=== PATIENT | male | born 1990 | race Caucasian/White ===

== ENCOUNTER 2018-03-20 12:38 | Emergency (ER) | payer OTHER ==
[2018-03-20] MEDS: MORPHINE 10 MG/ML 1ML VIAL (J2270) IM (14:44)
== END 2018-03-20 15:13 | disposition home or self-care (01) ==
LOC: M ED 12:38
DX: M54.6 Pain in thoracic spine (principal); Z79.52 Long term (current) use of systemic steroids
CPT/HCPCS: J2270

== ENCOUNTER 2020-03-01 12:18 | Inpatient (IN) | payer BC, OTHER ==
[~2020-03-01] VITALS: Ht 180.3 cm; Wt 63.9 kg
[~2020-03-01 12:18] MED LIST: CYCL-707 PO; NAPR-855 PO; PERC5TAB12 PO; PRED10PA PO
[2020-03-01] MEDS ORDERED: tylenol 2 tabs (12:27)
[2020-03-01] MEDS ORDERED: NS 1,000 ML IV ONE (12:45)
--- NOTE | 2020-03-01 13:11 | REP ---
Head CT without contrast: History: Elevated sed rate. Severe headaches. Comparison study: No comparison study. CT findings: Bone window settings demonstrate an intact bony calvarium. There is no evidence of skull fracture or incidental bony calvarial lesion. The visualized paranasal sinuses appear clear. No intraorbital abnormality is seen. On soft tissue window setting images; the lateral, third, and fourth ventricles are normal in size and position. Chase-white differentiation pattern is normal above and below the tentorium. There are is no evidence of intracranial hemorrhage. No mass, edema, infarction, or midline shift is seen. No extra-axial fluid collection is appreciated. Impression: Negative noncontrast head CT. Electronically Signed by Valentin Srinivasan MD 03/01/2020 01:03 P
--- NOTE | 2020-03-01 13:13 | REP ---
CT study of the cervical spine without contrast: History: Severe headaches. Elevated sed rate. No comparison imaging. Technique: Helical scanning is acquired and overlapping 2 mm high resolution axial images were generated and reviewed at bone and soft tissue window settings. Coronal and sagittal multiplanar re-formations images are generated. CT findings: There is no evidence of cervical spine element fracture. No skull base fracture is seen. Cervical vertebral body heights are preserved. Alignment is normal. Facet joints are normally aligned bilaterally at each cervical level on multiplanar re-formations images. There is no evidence of intraspinal or paraspinal hematoma. No extra vertebral abnormality is seen. 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 This is a normal variant. 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 Otherwise negative CT study of the cervical spine without contrast. No fracture seen. Electronically Signed by Valentin Srinivasan MD 03/01/2020 01:06 P
[2020-03-01 13:24] LABS: BASO % 0.2 % (0.0-1.0); HEMATOCRIT 36.6 % (42.0-52.0); HEMOGLOBIN 12.4 g/dl (13.5-17.5); LYMPH # 0.8 10^3/uL (1.5-5.0); LYMPH % 6.4 % (24.0-44.0); MEAN CORPUSCULAR HGB CONC 33.9 g/dl (32.0-36.5); MEAN CORPUSCULAR VOLUME 85.5 fl (80.0-96.0); MONO # 0.4 10^3/uL (0.0-0.8); MONO % 3.1 % (0.0-5.0); NEUTROPHILS # 10.9 10^3/uL (1.5-8.5); NEUTROPHILS % 89.6 % (36.0-66.0); PLATELET COUNT, AUTOMATED 461 10^3/uL (150-450); RED BLOOD COUNT 4.28 10^6/uL (4.30-6.10); WHITE BLOOD COUNT 12.2 10^3/uL (4.0-10.0)
[2020-03-01 13:55] LABS: MONO REFLEX EBV COMP NEGATIVE (NEGATIVE)
[2020-03-01 13:57] LABS: ERYTHROCYTE SEDIMENTATION RATE 86 mm/hr (0-15)
[2020-03-01 14:26] LABS: ALBUMIN 3.3 GM/DL (3.2-5.2); ALT/SGPT 44 U/L (12-78); BILIRUBIN,TOTAL 0.3 MG/DL (0.2-1.0); BLOOD UREA NITROGEN 13 MG/DL (7-18); CALCIUM LEVEL 9.1 MG/DL (8.5-10.1); CARBON DIOXIDE LEVEL 31 MEQ/L (21-32); CHLORIDE LEVEL 101 MEQ/L (98-107); CREATININE FOR GFR 0.61 MG/DL (0.70-1.30); GLOMERULAR FILTRATION RATE > 60.0 (>60); GLUCOSE, FASTING 94 MG/DL (70-100); POTASSIUM SERUM 4.2 MEQ/L (3.5-5.1); RHEUMATOID FACTOR QUANT < 10.0 IU/ML (<15.0); SODIUM LEVEL 138 MEQ/L (136-145); TOTAL PROTEIN 7.2 GM/DL (6.4-8.2)
[2020-03-01] MEDS ORDERED: ACET-897 PO (14:32)
--- NOTE | 2020-03-01 15:25 | REP ---
REASON FOR EXAM: Fever and chills. PRIORS: None. The interstitial markings are increased throughout the lung hayes in somewhat of a patchy type but subtle distribution. No uriel lobar patchy opacity is present. There is a haziness throughout the pulmonary vascularity without pulmonary vascular redistribution. The heart is not enlarged and the pleural angles are sharp. The osseus structures are within normal limits. IMPRESSION: Evidence of interstitial edema possible from a viral pneumonitis, which needs to be correlated clinically with followup. Electronically Signed by Kendell Mera DO 03/01/2020 03:26 P
[2020-03-01 16:00] LABS: FREE T4 1.66 NG/DL (0.76-1.46); THYROID STIMULATING HORMONE 0.373 uIU/ML (0.358-3.740)
[2020-03-01] MEDS: LR 1,000 ML IV SCH (16:02)
--- NOTE | 2020-03-01 16:26 | REP ---
REASON FOR EXAM: Pneumonitis with cough and dyspnea. COMPARISON CT: None. The lack of intravenous contrast decreases the sensitivity of the exam. There is no evidence of gross mediastinal or hilar adenopathy. Borderline and mildly enlarged lymph nodes cannot be rule out since no intravenous contrast was administered. There are no pleural or pericardial effusions. The imaged upper abdomen is within normal limits. The imaged osseous structures are within normal limits. Evaluation of the lung hayes shows patchy scattered ground-glass opacities particularly in the periphery of the lower lung hayes and seen in conjunction with scattered reticulonodular densities. No focal or segmental lesion is identified. There is no significant nodule or mass. IMPRESSION: 1. Lung field findings as described above consistent with interstitial and possibly early diffuse airspace edema. The exact etiology is uncertain. This needs to be correlated clinically with appropriate followup. Certainly, infectious etiologies such as viral pneumonitis should be clinically evaluated for. 2. Exam limitations and other findings as described above. Electronically Signed by Kendell Mera DO 03/01/2020 04:41 P
[2020-03-01] MEDS ORDERED: PROHANCE 279.3MG/ML 15ML VIAL As Ordered ONE (17:09)
--- NOTE | 2020-03-01 18:03 | REPVR ---
PROCEDURE INFORMATION: Exam: MR Cervical Spine Without and With Contrast Exam date and time: 03/01/2020 5:19 PM Age: 29 years old Clinical indication: Other: Fever; Additional info: Headache, fever unkn origon esr/crp elev, RO abscess TECHNIQUE: Imaging protocol: Multiplanar magnetic resonance images of the cervical spine without and with intravenous contrast. Contrast material: PROHANCE; Contrast volume: 12 ml; Contrast route: IV; COMPARISON: CT Spine,cervical w/o contrast 03/01/2020 12:46 PM FINDINGS: Vertebrae: Mild lower cervical levoconvex scoliosis. No acute fracture seen. Spinal cord: Normal signal. No cord compression. The intervertebral discs are preserved in height and signal intensity. No evidence of discitis osteomyelitis. C2-C3: No significant disc disease. No significant spinal stenosis. C3-C4: No significant disc disease. No significant spinal stenosis. C4-C5: No significant disc disease. No significant spinal stenosis. C5-C6: No significant disc disease. No significant spinal stenosis. C6-C7: No significant disc disease. No significant spinal stenosis. C7-T1: No significant disc disease. No significant spinal stenosis. Vertebral arteries: Expected flow voids in the vertebral arteries. Soft tissues: Unremarkable. IMPRESSION: No evidence of cervical discitis osteomyelitis or epidural abscess. Electronically signed by: Leeanna Booker On 03/01/2020 18:03:08 PM
--- NOTE | 2020-03-01 18:12 | REPVR ---
PROCEDURE INFORMATION: Exam: MR Head Without and With Contrast Exam date and time: 03/01/2020 5:19 PM Age: 29 years old Clinical indication: Other: Fever; Additional info: Headache, fever unkn origon esr/crp elev, RO abscess TECHNIQUE: Imaging protocol: MR of the head without and with intravenous contrast. Contrast material: PROHANCE; Contrast volume: 12 ml; Contrast route: IV; COMPARISON: CT Head without contrast 03/01/2020 12:46 PM FINDINGS: Brain: No acute infarct identified on the diffusion-weighted imaging. No evidence of brain parenchymal edema or intracranial mass effect. No significant white matter disease. On the FLAIR sequence, no evidence of leptomeningeal disease. No pathologic enhancement identified on the postcontrast imaging. Ventricles: Normal. No ventriculomegaly. Bones/joints: Unremarkable. Soft tissues: Unremarkable. Sinuses: Normal as visualized. No acute sinusitis. Mastoid air cells: Normal as visualized. No mastoid effusion. Orbits: Unremarkable. Nasopharynx: The nasopharynx demonstrates mild enlargement of the adenoidal tonsils. IMPRESSION: 1. Images are mildly motion degraded, in particular the postcontrast sequences. 2. No acute intracranial abnormality seen. Electronically signed by: Leeanna Booker On 03/01/2020 18:12:06 PM
--- NOTE | 2020-03-01 21:05 | HPEPDOC ---
[facility] Medical History & Physical Date of Admission March 01, 2020 Date of Service: March 01, 2020 Primary Care Physician: Jony Brown MD Attending Physician: ONIEL TURPIN MD History and Physical CHIEF COMPLAINT: Significant fatigue HISTORY OF PRESENT ILLNESS: Dc is a 29-year-old male with no significant past medical history who was driven to the ED today by his fiance c/o worsening fatigue, intermittent fevers, headaches, night sweats, and chills over the past 4-5 days. He had episodes of nonbloody emesis over the weekend and subsequently presented to his PCP (Dr. Jony Brown) yesterday for outpatient evaluation area and blood work from PCP visit revealed significantly elevated CRP (300) and ESR (100). 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 He was later contacted by his PCP and told to present to the ED for further evaluation. He reports really not feeling well since mid November when he had flulike symptoms with nausea and vomiting. Subsequently in December. He developed intermittent headaches that were most prominent when he returned home at night from work and feel like a "band around my head." Other than 1000mg acetaminophen tablets, patient has not taken any other medications for his symptoms. He has had some relief of his headaches and intermittent fevers after taking the Tylenol. He does not regularly take any prescribed medications as outpatient, denies recent travel, or known sick contacts. He has been tested twice as an outpatient for Covid 19, once 2 months ago and second time last week, with both results being negative. In the ED, his inflammatory markers were again elevated (ESR 86, CRP 26.2), with accompanying leukocytosis (WBC 12.2), thrombocytosis (461), microcytic anemia, normal TSH with elevated free T4 (1.66), lactic acid 1.0. Imaging showed interstitial edema with signs of possible viral pneumonitis. He was subsequently admitted under the care of the hospitalist service for further evaluation and workup to identify etiology of acute infectious process. He verbally confirms his CODE STATUS is full code. PAST MEDICAL HISTORY: Not significant other than outpatient cardiac workup in 2019 for palpitations and possible arrhythmia with Holter monitor. PAST SURGICAL HISTORY: None SOCIAL HISTORY: Engaged and lives with his fiance and [id number] son. 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 Currently chews smokeless tobacco and has done so for the past 2 years. Denies any current or former alcohol or illicit drug use. FAMILY HISTORY: Noncontributory other than unspecified history of cancer on maternal side. ALLERGIES: Please see below. REVIEW OF SYSTEMS: CONSTITUTIONAL: Endorses intermittent fevers, night sweats, chills HEENT: Endorses chronic tinnitus. Denies eye pain, visual disturbances, dysphagia, odynophagia CARDIOVASCULAR: Endorses chronic intermittent palpitations unchanged from outpatient evaluation last year. Denies chest pain, chest pressure RESPIRATORY: Endorses shortness of breath only with palpitations. Otherwise, no dyspnea, cough, or pleuritic chest pain GASTROINTESTINAL: Episodes of emesis over the weekend with no nausea and vomiting since then. Denies abdominal pain, diarrhea GENITOURINARY:. Denies dysuria or hematuria. MUSCULOSKELETAL: Endorses diffuse myalgias , most pronounced in neck, chest and back NEUROLOGICAL: Endorses bandlike headaches most prominent when he comes home at night from work. Endorses upper and lower extremity numbness at times after periods of rest. Occasional difficulty focusing/clotted thinking. ENDOCRINE: Endorses heat and cold intolerance HEMATOLOGIC/LYMPHATIC: Denies easy bleeding or bruising HOME MEDICATIONS: Please see below. PHYSICAL EXAMINATION: VITAL SIGNS: Temperature 99.9, pulse 93-98, respiratory rate 20, blood pressure 125/77, pulse oximetry, 100 % on room air. GENERAL APPEARANCE: Young, thin male with moderate facial pallor. Ly ing upright in bed. No acute distress. Alert and oriented 3. HEENT: Normocephalic, atraumatic. PERRLA. EOMI. Noninjected, anicteric sclera. No significant conjunctival pallor. [place], MMM., No fragile erythema or exudate. No cervical lymphadenopathy appreciated. CARDIOVASCULAR: Regular rate, regular rhythm. +S1, S2 with no murmurs, rubs, or gallops appreciated. Capillary refill 23 seconds. 2+ radial and posterior tibial pulses bilaterally. LUNGS: Moderate egophony over right lung base posteriorly with otherwise no wheezes, crackles, or rhonchi. Adequate tidal volume. No excessive muscle use. S peaking full sentences. Breathing room air. Skin over back is somewhat clammy. ABDOMEN: Thin. Soft, non-distended. Tenderness to palpation in all quadrants except right upper quadrant. Rebound tenderness over left lower quadrant, with no guarding or rigidity. Mild hepatomegaly. Hyperactive bowel sounds. MUSCULOSKELETAL: 02/15 muscle strength testing, UE & LE b/l. EXTREMITIES: Skin overlying, hands and feet are cool to touch. Lower extremities free of edema. No signs of cyanosis or clubbing. NEUROLOGICAL: Awake, alert and oriented 3. Cranial nerves III through XII grossly intact. Sensation to light touch diminished on left side in comparison to right. Non-dysarthric speech. Negative Brudzinski sign. PSYCHIATRIC: Mood and affect appear appropriate LABORATORY DATA: Please see below. 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 Otherwise negative CT study of the cervical spine without contrast. No fracture seen. Chest x-ray, 03/01/20: Evidence of interstitial edema possible from a viral pneumonitis, which needs to be correlated clinically with followup. Cervical spine MRI, 03/01/20: No evidence of cervical discitis osteomyelitis or epidural abscess. Brain MRI, 03/01/20: Images are mildly motion degraded, in particular the postcontrast sequences. No acute intracranial abnormality seen. Chest CT, 03/01/20: Lung field findings as described above consistent with interstitial and possibly early diffuse airspace edema. The exact etiology is uncertain. This needs to be correlated clinically with appropriate followup. Certainly, infectious etiologies such as viral pneumonitis should be clinically evaluated for. MICROBIOLOGY: Please see below. ASSESSMENT & PLAN: This is a 29-year-old male with no significant past medical history who presented with progressive fatigue over the past week and associated intermittent fevers, headaches, night sweats, and chills. He was admitted to [facility] for further evaluation and workup of acute inflammatory process, infection versus autoimmune causes. #Acute inflammatory process, infectious versus autoimmune etiology -Elevated inflammatory markers (ESR 86, CRP 26.2, platelets 461); leukocytosis (WBC 12.2 with neutrophil predominance) -Rule out bacterial causes, 2 blood cultures pending -Rule out acute viral infection (HIV screen, CMV, EBV) -rule out acute fungal infection (LDH, beta D glucan) Rule out autoimmune processes (c-ANCA, p-ANCA, and a titer, anti-Ro, anti-lock, anti-[facility] [employer]) -Ferritin ordered (acute phase reactant) -Respiratory panel ordered -s/p 1L NS in ED, with 1L LR subsequently ordered -prn acetaminophen for pain or fever #Normocytic anemia -Hgb 12.4, MCV 85.5 -Likely secondary to acute inflammatory process -No previous CBC history and system to assess for baseline -Iron panel ordered #Interstitial edema with signs of viral pneumonitis -Viral etiology workup underway #Tension type headahes -Patient complains of bandlike intermittent headaches that are worse at night after work -prn acetaminophen ordered #DVT prophylaxis: Teds and sequentials Disposition: Admit to [facility] for further evaluation and workup for etiology of acute inflammatory process Vital Signs Vital Signs Date Time Temp Pulse Resp B/P (MAP) Pulse Ox O2 Delivery O2 Flow Rate FiO2 03/01/20 19:03 83 20 112/57 (75) 98 Room Air 03/01/20 15:11 98.6 Laboratory Data Labs 24H Laboratory Tests 2 03/01/20 13:01: Lactic Acid Level 1.0 03/01/20 13:10: Immature Granulocyte % (Auto) 0.7, Neutrophils (%) (Auto) 89.6H, Lymphocytes (%) (Auto) 6.4L, Monocytes (%) (Auto) 3.1, Eosinophils (%) (Auto) 0.0, Basophils (%) (Auto) 0.2, Neutrophils # (Auto) 10.9H, Lymphocytes # (Auto) 0.8L, Monocytes # (Auto) 0.4, Eosinophils # (Auto) 0.0, Basophils # (Auto) 0.0, Nucleated Red Blood Cells % (auto) 0.0, Erythrocyte Sedimentation Rate 86H, Anion Gap 6L, Glomerular Filtration Rate > 60.0, Calcium Level 9.1, Total Bilirubin 0.3, Aspartate Amino Transf (AST/SGOT) 34, Alanine Aminotransferase (ALT/SGPT) 44, Alkaline Phosphatase 80, C-Reactive Protein, Quantitative 26.20H, Total Protein 7.2, Albumin 3.3, Albumin/Globulin Ratio 0.8, Rheumatoid Factor < 10.0, Monoscreen NEGATIVE 03/01/20 14:41: Thyroid Stimulating Hormone (TSH) 0.373, Free Thyroxine 1.66H 03/01/20 15:39: Urine Color YELLOW, Urine Appearance CLEAR, Urine pH 6.0, Urine Specific [place] 1.019, Urine Protein NEGATIVE, Urine Glucose (UA) NEGATIVE, Urine Ketones NEGATIVE, Urine Blood NEGATIVE, Urine Nitrite NEGATIVE, Urine Bilirubin NEGATIVE, Urine Urobilinogen 4.0H, Urine Leukocyte Esterase NEGATIVE, Urine WBC (Auto) 1, Urine RBC (Auto) 2, Urine Hyaline Casts (Auto) 0, Urine Bacteria ( Auto) NEGATIVE, Urine Squamous Epithelial Cells 0, Urine Sperm (Auto) 03/01/20 15:54: 03/01/20 19:34: CBC/BMP Laboratory Tests 03/01/20 13:10 Microbiology Microbiology 03/01/20 Blood Culture, Received Pending 03/01/20 Blood Culture, Received Pending Home Medications Scheduled PRN Acetaminophen (Tylenol Extra Strength) 500 Mg Tablet, 1,000 MG PO TID PRN for PAIN Allergies Coded Allergies: No Known Allergies (Unverified , 03/20/18) A-FIB/CHADSVASC A-FIB History Current/History of A-Fib/PAF?: No Current PO Anticoag Therapy: No GME ATTESTATION GME ATTESTATION My faculty preceptor for this patient encounter was physically present during the encounter and was fully available. All aspects of the patient interview, examination, medical decision making process, and medical care plan development were reviewed and approved by the faculty preceptor. The faculty preceptor is aware and concurs with the plan as stated in the body of this note and will attest to such by his/her cosignature. ATTENDING NOTE Patient was seen and examined by me and agree with the above assessment and plan SANDRO OLSEN D.O. March 01, 2020 21:05 ONIEL TURPIN MD March 04, 2020 17:43
[2020-03-01 21:07] LABS: AMPHETAMINES LEVEL URINE NEGATIVE (NEGATIVE); BARBITURATES URINE NEGATIVE (NEGATIVE); BENZODIAZEPINES URINE NEGATIVE (NEGATIVE); CANNABINOIDS URINE POSITIVE (NEGATIVE); COCAINE METABOLITE URINE NEGATIVE (NEGATIVE); METHADONE URINE NEGATIVE (NEGATIVE); OPIATES URINE NEGATIVE (NEGATIVE); PHENCYCLIDINE URINE NEGATIVE (NEGATIVE)
[2020-03-01 21:10] LABS: CPK CREATINE PHOSPHOKINASE 45 U/L (39-308); FERRITIN 306 NG/ML (26-388); IRON (FE) 18 UG/DL (65-175); LDH LACTATE DEHYDROGENASE 358 U/L (87-241); PERCENT SATURATION 11.8 % (19.7-50.0); TOTAL IRON BINDING CAPACITY 153 UG/DL (250-450)
[2020-03-01 23:29] VITALS: BP 112/71
[2020-03-02] MEDS: ACETAMINOPHEN TAB 650MG DOSE (2X325MG) PO PRN ×2 (00:02→07:56)
--- NOTE | 2020-03-02 00:36 | ECGEPIP ---
[facility] - ED Test Date: 2020-03-01 Pat Name: BENSON CENTENO Department: Room: - Gender: Male [employer]: : 1990 Requested By: FLORSE Kahn PA-C Order Number: [id number] Reading MD: Celso Watt Measurements Intervals [place] Rate: 70 P: 68 MD: 142 QRS: 77 QRSD: 96 T: 48 QT: 343 QTc: 372 Interpretive Statements SINUS RHYTHM WITH SINUS ARRHYTHMIA Comparison tracing not on file Electronically Signed on 03-02-2020 0:35:46 EDT by Celso Watt
[2020-03-02] MEDS: LR 1,000 ML IV SCH ×3 (01:45→20:44)
[2020-03-02 06:00] VITALS: BP 111/76
[2020-03-02 06:49] LABS: ALBUMIN 2.9 GM/DL (3.2-5.2); ALT/SGPT 34 U/L (12-78); BILIRUBIN,TOTAL 0.5 MG/DL (0.2-1.0); BLOOD UREA NITROGEN 12 MG/DL (7-18); CALCIUM LEVEL 8.7 MG/DL (8.5-10.1); CARBON DIOXIDE LEVEL 29 MEQ/L (21-32); CHLORIDE LEVEL 103 MEQ/L (98-107); GLOMERULAR FILTRATION RATE > 60.0 (>60); GLUCOSE, FASTING 84 MG/DL (70-100); POTASSIUM SERUM 4.9 MEQ/L (3.5-5.1); SODIUM LEVEL 138 MEQ/L (136-145); TOTAL PROTEIN 6.8 GM/DL (6.4-8.2)
[2020-03-02 08:22] LABS: BASO % 0.4 % (0.0-1.0); EOS # 0.1 10^3/uL (0.0-0.5); EOS % 0.8 % (0.0-3.0); HEMOGLOBIN 11.8 g/dl (13.5-17.5); LYMPH % 9.2 % (24.0-44.0); MEAN CORPUSCULAR HEMOGLOBIN 29.2 pg (27.0-33.0); MEAN CORPUSCULAR HGB CONC 33.7 g/dl (32.0-36.5); MEAN CORPUSCULAR VOLUME 86.6 fl (80.0-96.0); MONO # 0.4 10^3/uL (0.0-0.8); MONO % 3.3 % (0.0-5.0); NEUTROPHILS # 9.1 10^3/uL (1.5-8.5); NEUTROPHILS % 85.6 % (36.0-66.0); PLATELET COUNT, AUTOMATED 472 10^3/uL (150-450); RED BLOOD COUNT 4.04 10^6/uL (4.30-6.10); WHITE BLOOD COUNT 10.6 10^3/uL (4.0-10.0)
[2020-03-02 08:44] LABS: COMPLEMENT C3 165 MG/DL (90-180); COMPLEMENT C4 19 MG/DL (10-40)
[2020-03-02 09:43] LABS: HIV 1&2 SCREEN CENTAUR NEGATIVE (NEGATIVE)
[2020-03-02 14:19] LABS: EBV VIRAL CAPSID AG IgM <36.0 U/mL (0.0-35.9)
[2020-03-02 15:39] VITALS: BP 110/70
--- NOTE | 2020-03-02 17:56 | IPNPDOC ---
Date Seen The patient was seen on 03/02/20. Progress Note SUBJECTIVE: Dc is a 29-year-old male without significant past medical history who presented to the ED on 03/01/20 with chief complaints of worsening fatigue, as well as intermittent headaches, fevers, myalgias, night sweats and chills over the past 45 days. He had episodes of nonbloody emesis over the weekend and subsequently presented to his PCP (Dr. Jony Brown) on 02/28 for outpatient evaluation. Blood work from PCP visit revealed significantly elevated CRP (300) and ESR (100). 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 He was later contacted by his PCP and told to present to the ED for further evaluation. He reports really not feeling well since mid November when he had flulike symptoms with nausea and vomiting. Subsequently in December, he developed intermittent headaches that were most prominent when he returned home at night from work and describes them as a "band around my head." Other than 1000mg acetaminophen tablets, patient has not taken any other medications for his symptoms. He has had some relief of his headaches and intermittent fevers after taking the Tylenol. He does not regularl y take any prescribed medications as outpatient, denies recent travel, or known sick contacts. He has been tested twice as an outpatient for Covid 19, once 2 months ago, and second time last week, with both results being negative. He was tested once again in the ED upon admission with rapid Covid PCR, and again had a negative result. He was seen and examined by the hospitalist service this morning while lying in bed. He had no adverse events overnight, and reports only mild sweating, which is in contrast to the heavy night sweats from earlier in the week. He did endorse some nausea early this morning with no emesis, and also continues to have moderate heat/cold intolerance. He continues to have myalgias, but states they have decreased in intensity from yesterday. He was able to tolerate both a light dinner and breakfast this morning and had a bowel movement overnight. He denies any chest pain, chest pressure, palpitations, abdominal pain, or diarrhea this morning. OBJECTIVE PHYSICAL EXAMINATION: VITAL SIGNS: Please see below. GENERAL APPEARANCE: Young, thin male with moderate facial pallor. Lying upright in bed. No acute distress. Alert and oriented 3. HEENT: Normocephalic, atraumatic. PERRLA. EOMI. Noninjected, anicteric sclera. No significant conjunctival pallor. [place], MMM. No pharyngeal erythema or exudate. No cervical lymphadenopathy appreciated. CARDIOVASCULAR: Regular rate, regular rhythm. +S1, S2 with no murmurs, rubs, or gallops appreciated. 2+ radial and posterior tibial pulses bilaterally. LUNGS: CTA b/l with no wheezes, crackles, or rhonchi. Adequate tidal volume. No accessory muscle use. Speaking full sentences. Breathing room air. ABDOMEN: Thin. Soft, non-distended. Tenderness of right upper quadrant with some voluntary guarding. Mild hepatomegaly. Normoactive bowel sounds., No tympany to percussion. MUSCULOSKELETAL: 5/5 muscle strength testing, UE & LE b/l. EXTREMITIES: Lower extremities free of edema. No signs of cyanosis or clubbing. NEUROLOGICAL: Awake, alert and oriented 3. . No focal neurologic deficits appreciated. Non-dysarthric speech. Negative Brudzinski sign. PSYCHIATRIC: Mood and affect appear appropriate LABORATORY DATA, IMAGING STUDIES, MICROBIOLOGY: Please see below. Echocardiogram: DVT prophylaxis ordered?: Yes, in the form of TEDs and SCDs ASSESSMENT AND PLAN: This is a 29-year-old male with no significant past medical history who presented with progressive fatigue over the past week and associated intermittent fevers, headaches, night sweats, and chills. He was admitted to [facility] for further evaluation and workup of acute inflammatory process, infection versus autoimmune causes. #Acute inflammatory process, infectious versus autoimmune etiology -WBC decreasing - - now 10.6, down from 12.2 yesterday -Elevated inflammatory markers yesterday upon presentation (ESR 86, CRP 26.2); C3 and C4 wnl -Rule out bacterial causes: Two initial blood cultures from yesterday showed no growth over 24hrs; Syphilis serology non-reactive -Rule out acute viral infection: respiratory viral panel, HIV screen, and EBV negative; CMV pending -Rule out acute fungal infection: LDH elevated; beta D glucan pending Rule out autoimmune processes: c-ANCA, p-ANCA, CLEO titer, anti-Ro, anti-lock, anti-FUNERAL SERVICE LICENSEE pending -Ferritin ordered (acute phase reactant) was wnl -1L LR running q10h -prn acetaminophen for pain or fever -urine tox screen for possible drug-induced etiology only positive for THC #Normocytic normochromic anemia, possibly due to early onset BONNIE -Hgb 10.6, MCV 86.6 -Iron panel showed sFe 18, with low TIBC 153, and ferritin; still possible for early BONNIE due to significantly low sFe, even with low TIBC and nl ferritin #Interstitial edema with signs of viral pneumonitis on imaging -Viral etiology workup underway, see above #Tension type headahes -Patient complains of recent bandlike intermittent headaches that night -Pt did not experience any during the overnight or this morning -prn acetaminophen ordered #DVT prophylaxis: Teds and sequentials Disposition: Pending results of further workup for etiology of acute inflammatory process VS, I&O, 24H, Fishbone Vital Signs/I&O Vital Signs Date Time Temp Pulse Resp B/P (MAP) Pulse Ox O2 Delivery O2 Flow Rate FiO2 03/02/20 15:39 98.4 66 16 110/70 (83) 100 Room Air I&O- Last 24 Hours up to 6 AM 03/02/20 06:00 Intake Total 2300 ml Output Total 1000 ml Balance 1300 ml Laboratory Data 24H LABS Laboratory Tests 2 03/01/20 19:34: Syphilis Serology NONREACTIVE 03/01/20 20:22: Iron Level 18L, Total Iron Binding Capacity 153L, Transferrin % Saturation 1 1.8L, Ferritin 306, Lactate Dehydrogenase 358H, Total Creatine Kinase 45, Complement C3 165, Complement C4 19, HIV Antigen/Antibody Combo Qual NEGATIVE 03/01/20 22:01: Coronavirus (COVID-19)(PCR) NEGATIVE 03/02/20 05:52: Immature Granulocyte % (Auto) 0.7, Neutrophils (%) (Auto) 85.6H, Lymphocytes (%) (Auto) 9.2L, Monocytes (%) (Auto) 3.3, Eosinophils (%) (Auto) 0.8, Basophils (%) (Auto) 0.4, Neutrophils # (Auto) 9.1H, Lymphocytes # (Auto) 1.0L, Monocytes # (Auto) 0.4, Eosinophils # (Auto) 0.1, Basophils # (Auto) 0.0, Nucleated Red Blood Cells % (auto) 0.0, Anion Gap 6L, Glomerular Filtration Rate > 60.0, Calcium Level 8.7, Total Bilirubin 0.5#, Aspartate Amino Transf (AST/SGOT) 29, Alanine Aminotransferase (ALT/SGPT) 34, Alkaline Phosphatase 74, Total Protein 6.8, Albumin 2.9L, Albumin/Globulin Ratio 0.7 CBC/BMP Laboratory Tests 03/02/20 05:52 Microbiology Microbiology 03/02/20 Respiratory Virus Panel (PCR) (JOSE) - Final, Complete 03/01/20 Blood Culture - Preliminary, Resulted No growth after 24 hours . All specim... 03/01/20 Blood Culture - Preliminary, Resulted No growth after 24 hours . All specim... GME ATTESTATION GME ATTESTATION My faculty preceptor for this patient encounter was physically present during the encounter and was fully available. All aspects of the patient interview, examination, medical decision making process, and medical care plan development were reviewed and approved by the faculty preceptor. The faculty preceptor is aware and concurs with the plan as stated in the body of this note and will attest to such by his/her cosignature. ATTENDING NOTE Patient was seen and examined by me and agree with the above assessment and plan SANDRO OLSEN D.O. March 02, 2020 17:56 ONIEL TURPIN MD March 04, 2020 17:44
[2020-03-02 20:46] VITALS: BP 123/80
[2020-03-03 00:06] LABS: ANA (HEP2) Negative (.)
[2020-03-03 05:31] VITALS: BP 116/71
[2020-03-03] MEDS: LR 1,000 ML IV SCH ×2 (05:38→16:50)
[2020-03-03 06:20] LABS: HEMATOCRIT 36.3 % (42.0-52.0); HEMOGLOBIN 12.2 g/dl (13.5-17.5); MEAN CORPUSCULAR HGB CONC 33.6 g/dl (32.0-36.5); MEAN CORPUSCULAR VOLUME 86.2 fl (80.0-96.0); PLATELET COUNT, AUTOMATED 515 10^3/uL (150-450); RED BLOOD COUNT 4.21 10^6/uL (4.30-6.10)
[2020-03-03 06:45] LABS: ALT/SGPT 34 U/L (12-78); BILIRUBIN,TOTAL 0.3 MG/DL (0.2-1.0); BLOOD UREA NITROGEN 9 MG/DL (7-18); CALCIUM LEVEL 8.7 MG/DL (8.5-10.1); CARBON DIOXIDE LEVEL 29 MEQ/L (21-32); CHLORIDE LEVEL 102 MEQ/L (98-107); CREATININE FOR GFR 0.59 MG/DL (0.70-1.30); GLOMERULAR FILTRATION RATE > 60.0 (>60); GLUCOSE, FASTING 90 MG/DL (70-100); POTASSIUM SERUM 4.6 MEQ/L (3.5-5.1); SODIUM LEVEL 138 MEQ/L (136-145); TOTAL PROTEIN 7.2 GM/DL (6.4-8.2)
[2020-03-03 14:00] VITALS: BP 111/68
--- NOTE | 2020-03-03 20:49 | IPNPDOC ---
Date Seen The patient was seen on 03/03/20. Progress Note SUBJECTIVE: Dc is a 29-year-old male without significant past medical history who presented to the ED on 03/01/20 with chief complaints of worsening fatigue, as well as intermittent headaches, fevers, myalgias, night sweats and chills over the past 45 days. He had episodes of nonbloody emesis over the weekend and subsequently presented to his PCP (Dr. Jony Brown) on 02/28 for outpatient evaluation. Blood work from PCP visit revealed significantly elevated CRP (300) and ESR (100). 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 He was later contacted by his PCP and told to present to the ED for further evaluation. He reports really not feeling well since mid November when he had flulike symptoms with nausea and vomiting. Subsequently in December, he developed intermittent headaches that were most prominent when he returned home at night from work and describes them as a "band around my head." Other than 1000mg acetaminophen tablets, patient has not taken any other medications for his symptoms. He has had some relief of his headaches and intermittent fevers after taking the Tylenol. He does not regularl y take any prescribed medications as outpatient, denies recent travel, or known sick contacts. He has been tested twice as an outpatient for Covid 19, once 2 months ago, and second time last week, with both results being negative. He was tested once again in the ED upon admission with rapid Covid PCR, and again had a negative result. *Dc was seen and examined this afternoon by the hospitalist service while lying in bed. He had no adverse events overnight and reported a second consecutive day with improved symptomatology and energy level. His myalgias are significantly reduced, he denied any night sweats, headaches,, nausea, vomiting, shortness of breath. He did endorse a loose bowel movement earlier today. He is tolerating both liquids and solids without any issue. OBJECTIVE PHYSICAL EXAMINATION: VITAL SIGNS: Please see below. GENERAL APPEARANCE: Young, thin male with moderate facial pallor. Lying upright in bed. No acute distress. Alert and oriented 3. HEENT: Normocephalic, atraumatic. Noninjected, anicteric sclera. CARDIOVASCULAR: Regular rate, regular rhythm. +S1, S2 with no murmurs, rubs, or gallops appreciated. 2+ radial and posterior tibial pulses bilaterally. LUNGS: CTA b/l with no wheezes, crackles, or rhonchi. Adequate tidal volume. No accessory muscle use. Speaking full sentences. Breathing room air. ABDOMEN: Thin. Soft, non-distended. Tenderness of right upper quadrant with some voluntary guarding. Mild hepatomegaly. Normoactive bowel sounds. EXTREMITIES: Lower extremities free of edema. No signs of cyanosis or clubbing. NEUROLOGICAL: Awake, alert and oriented 3. . No focal neurologic deficits appreciated. Non-dysarthric speech. PSYCHIATRIC: Mood and affect appear appropriate LABORATORY DATA, IMAGING STUDIES, MICROBIOLOGY: Please see below. Echocardiogram: Was performed yesterday (03/02) with official read not yet in. DVT prophylaxis ordered?: Teds and sequentials ASSESSMENT AND PLAN: This is a 29-year-old male with no significant past medical history who presented with progressive fatigue over the past week and associated intermittent fevers, headaches, night sweats, and chills. He was admitted to [facility] for further evaluation and workup of acute inflammatory process, infection versus autoimmune causes. #Acute inflammatory process, infectious versus autoimmune etiology -WBC down now to wnl (9.0) -Elevated inflammatory markers: ESR 86, CRP 26.2 upon presentation -C3 and C4, and CK wnl -Rule out bacterial causes: Two initial blood cultures from yesterday showed no growth over 24hrs; Syphilis serology non-reactive -Rule out acute viral infection: respiratory viral panel, HIV screen, novel coronavirus rapid pcr negative, and acute EBV negative (EBV IgG +); CMV pending -Rule out acute fungal infection: LDH elevated; beta D glucan pending Rule out autoimmune processes: CLEO titer is negative, strongly suggesting overall rheum/ai etiology unlikely: c-ANCA, p-ANCA, anti-Ro, anti-lock, anti-SECONDARY TEACHER pending -Acute phase reactants: PLT count continues to rise, up to 515 today from 472 yesterday; ferritin wnl -1L LR running q10h -prn acetaminophen for pain or fever -urine tox screen for possible drug-induced etiology only positive for THC -*At this point, there is an inflammatory process going on of unknown etiology: Results from viral, rheumatological/autoimmune/vasculitis, bacterial, and fungal are all relatively unremarkable to this point. 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 -Should official echocardiogram read be unremarkable, patient likely to be discharged tomorrow with follow up as outpatient with PCP for further workup of inflammatory process, etiology #Normocytic normochromic anemia, possibly due to early onset BONNIE -Hgb 12.2, MCV 86.2 today -03/01 Iron panel showed: sFe 18, with low TIBC 153, and ferritin wnl -still a possibility for early BONNIE due to significantly low sFe, even with low TIBC and nl ferritin #Interstitial edema with signs of viral pneumonitis on imaging -Viral etiology workup underway, see above #Tension type headahes -Patient complains of recent bandlike intermittent headaches at night prior to presentation -Pt did not experience any during the overnight or this morning for the 2nd consecutive day -prn acetaminophen on board #DVT prophylaxis: Teds and sequentials Disposition: Pending read of echocardiogram; should this be unremarkable, likely discharge tomorrow. VS, I&O, 24H, Fishbone Vital Signs/I&O Vital Signs Date Time Temp Pulse Resp B/P (MAP) Pulse Ox O2 Delivery O2 Flow Rate FiO2 03/03/20 14:00 98.0 70 16 111/68 (82) 99 Room Air I&O- Last 24 Hours up to 6 AM 03/03/20 06:00 Intake Total 4110 ml Output Total 3450 ml Balance 660 ml Laboratory Data 24H LABS Laboratory Tests 2 03/03/20 05:57: Nucleated Red Blood Cells % (auto) 0.0, Anion Gap 7L, Glomerular Filtration Rate > 60.0, Calcium Level 8.7, Total Bilirubin 0.3, Aspartate Amino Transf (AST/SGOT) 24, Alanine Aminotransferase (ALT/SGPT) 34, Alkaline Phosphatase 73, Total Protein 7.2, Albumin 3.0L, Albumin/Globulin Ratio 0.7 CBC/BMP Laboratory Tests 03/03/20 05:57 Microbiology Microbiology 03/02/20 Respiratory Virus Panel (PCR) (JOSE) - Final, Complete 03/01/20 Blood Culture - Preliminary, Resulted No Growth after 48 hours. All Specime... 03/01/20 Blood Culture - Preliminary, Resulted No Growth after 48 hours. All Specime... GME ATTESTATION GME ATTESTATION My faculty preceptor for this patient encounter was physically present during the encounter and was fully available. All aspects of the patient interview, examination, medical decision making process, and medical care plan development were reviewed and approved by the faculty preceptor. The faculty preceptor is aware and concurs with the plan as stated in the body of this note and will at test to such by his/her cosignature. ATTENDING NOTE Patient was seen and examined by me and agree with the above assessment and plan SANDRO OLSEN D.O. March 03, 2020 20:49 ONIEL TURPIN MD March 04, 2020 17:45
[2020-03-03 22:00] VITALS: BP 114/73
[2020-03-04] MEDS: LR 1,000 ML IV SCH (02:08)
--- NOTE | 2020-03-04 04:37 | ECHO ---
DATE OF PROCEDURE: 03/02/2020 REFERRING PROVIDER: Dr. Steven Riddle PATIENT LOCATION: Room 4225. REASON FOR THE STUDY: Fever. 2D MEASUREMENTS: IVS: 0.9 cm LV: 4.4 cm LVPW: 0.9 cm LA: 2.9 cm Aorta: 2.6 cm IVC: 2.4 cm DOPPLER MEASUREMENTS: Peak velocity across the aortic valve 1.1 m/s Peak velocity across the LVOT: 1.0 m/s Mitral E: 0.62 Mitral A: 0.36 with a ratio of 1.7 Maximum tricuspid valve velocity: 1.9 m/s 2D COMMENTS: 1. Normal left ventricular size, wall thickness, and normal global left ventricular systolic function. The estimated left ventricular systolic ejection fraction is 60-65%. 2. Normal left atrium. Normal right atrium and right ventricle. 3. The atrial septum appeared to be normal without evidence of defect or shunt. 4. Normal aortic root. 5. No pericardial effusion seen. 6. The aortic valve, mitral valve, tricuspid valve, and pulmonic valve appeared to be normal. The proximal pulmonary artery branches were not well visualized. 7. The inferior vena cava was mildly enlarged; central venous pressure might be elevated. DOPPLER: It detects trace mitral regurgitation and trace tricuspid regurgitation. The calculated pulmonary artery systolic pressure was normal. IMPRESSION: 1. Normal global left ventricular systolic and diastolic function. 2. Trace mitral regurgitation. 3. Trace tricuspid regurgitation with a normal calculated pulmonary artery systolic pressure. 4. The inferior vena cava was mildly enlarged.
[2020-03-04 06:00] VITALS: BP 107/75
[2020-03-04 07:34] LABS: HEMATOCRIT 35.6 % (42.0-52.0); HEMOGLOBIN 11.8 g/dl (13.5-17.5); MEAN CORPUSCULAR HEMOGLOBIN 28.6 pg (27.0-33.0); MEAN CORPUSCULAR HGB CONC 33.1 g/dl (32.0-36.5); MEAN CORPUSCULAR VOLUME 86.2 fl (80.0-96.0); PLATELET COUNT, AUTOMATED 516 10^3/uL (150-450); RED BLOOD COUNT 4.13 10^6/uL (4.30-6.10); WHITE BLOOD COUNT 8.5 10^3/uL (4.0-10.0)
[2020-03-04 07:54] LABS: BLOOD UREA NITROGEN 11 MG/DL (7-18); CALCIUM LEVEL 8.9 MG/DL (8.5-10.1); CARBON DIOXIDE LEVEL 31 MEQ/L (21-32); CHLORIDE LEVEL 106 MEQ/L (98-107); GLOMERULAR FILTRATION RATE > 60.0 (>60); GLUCOSE, FASTING 92 MG/DL (70-100); POTASSIUM SERUM 4.2 MEQ/L (3.5-5.1); SODIUM LEVEL 142 MEQ/L (136-145)
[2020-03-05 00:06] LABS: ANCA-ATYPICAL <1:20 titer (Neg:<1:20); CYTOMEGALOVIRUS IgG ANTIBODY <0.60 U/mL (0.00-0.59); CYTOMEGALOVIRUS IgM ANTIBODY <30.0 AU/mL (0.0-29.9); CYTOPLASMIC NEUTROP AB ANCA-C <1:20 titer (Neg:<1:20); FUNGITELL, SERUM <31 pg/mL (<80); PERINUCLEAR AB ANCA-P <1:20 titer (Neg:<1:20); RNP ANTIBODY < 0.2 AI (0.0-0.9); SMITHS ANTIBODY < 0.2 AI (0.0-0.9); SSA SJOGRENS A <0.2 AI (0.0-0.9); SSB SJOGRENS B <0.2 AI (0.0-0.9); TRANSFERRIN 127 mg/dL (177-329)
--- NOTE | 2020-03-05 17:50 | DS.PDOC ---
Discharge Summary General Date of Admission March 01, 2020 at 19:47 Date of Discharge March 03, 2020 Primary Care Physician: Jony Brown MD Attending Physician: ONIEL TURPIN MD Discharge Summary PROCEDURES PERFORMED DURING STAY: None ADMITTING DIAGNOSES: Acute inflammatory process, unknown etiology Fever of unknown origin DISCHARGE DIAGNOSES: Acute inflammatory process, unknown etiology Fever of unknown origin Iron deficiency anemia, early stage COMPLICATIONS/CHIEF COMPLAINT: Fever Unknown Origin Headache. HISTORY OF PRESENT ILLNESS & HOSPITAL COURSE: Dc is a 29-year-old male without significant past medical history who presented to the ED on 03/01/20 with chief complaints of worsening fatigue, as well as intermittent headaches, fevers, myalgias, night sweats and chills over the past 45 days. He had episodes of nonbloody emesis over the weekend and subsequently presented to his PCP (Dr. Jony Brown) on 02/28 for outpatient evaluation. Blood work from PCP visit revealed significantly elevated CRP (300) and ESR (100). 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 He was later contacted by his PCP and told to present to the ED for further evaluation. He reports really not feeling well since mid November when he had flulike symptoms with nausea and vomiting. Subsequently in December, he developed intermittent headaches that were most prominent when he returned home at night from work and describes them as a "band around my head." Other than 1000mg acetaminophen tablets, patient has not taken any other medications for his symptoms. He has had some relief of his headaches and intermittent fevers after taking the Tylenol. He does not regularly take any prescribed medications as outpatient, denies recent travel, or known sick contacts. He has been tested twice as an outpatient for Covid 19, once 2 months ago, and second time last week, with both results being negative. He was tested once again in the ED upon admission with rapid Covid PCR, and again had a negative result. During the course of his stay, we systematically went about ruling in or out potential causes of his acute inflammatory state - -from bacterial, to viral, to fungal, to autoimmune. At the time of discharge, 2 initial blood cultures showed no growth over 48 hours; a syphilis serology was nonreactive; viral respiratory panel, HIV screen, acute EBV, and CLEO titer were all negative. CMV, beta D glucan, c-ANCA, p-ANCA, anti-Ro, anti-law and anti-CITY SURVEYOR results remain pending at time of discharge. A urine toxicology screen for possible drug etiologies was unremarkable other than positive THC. An echocardiogram was performed to assess for any cardiomyopathy secondary to the acute inflammatory process and was relatively unremarkable - - with the exception of trace mitral and tricuspid insufficiency. 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 Patient was also found to have low iron in the context of anemia, and while TIBC and ferritin did not align with standard iron deficiency anemia trends, this does not preclude possible early onset of iron deficiency anemia. This is an item that is warranted for follow-up with patient's primary care provider. Patient was discharged having been appraised of all developments regarding his workup and care as well as follow-up instructions and monitoring. Patient verbally indicated understanding of plan and agreed to plan moving forward. DISCHARGE MEDICATIONS: Please see below. ALLERGIES: Please see below. PHYSICAL EXAMINATION ON DISCHARGE: VITAL SIGNS: Please see below. GENERAL APPEARANCE: Young, thin male with moderate facial pallor. Lying upright in bed. No acute distress. Alert and oriented 3. HEENT: Normocephalic, atraumatic. Noninjected, anicteric sclera. CARDIOVASCULAR: Regular rate, regular rhythm. +S1, S2 with no murmurs, rubs, or gallops appreciated. 2+ radial and posterior tibial pulses bilaterally. LUNGS: CTA b/l with no wheezes, crackles, or rhonchi. Adequate tidal volume. No accessory muscle use. Speaking full sentences. Breathing room air. ABDOMEN: Thin. Soft, non-distended. Tenderness of right upper quadrant with some voluntary guarding. Mild hepatomegaly. Normoactive bowel sounds. EXTREMITIES: Lower extremities free of edema. No signs of cyanosis or clubbing. NEUROLOGICAL: Awake, alert and oriented 3. No focal neurologic deficits appreciated. Non-dysarthric speech. PSYCHIATRIC: Mood and affect appear appropriate LABORATORY DATA: Please see below. IMAGING: Echocardiogram, 03/02/20: Impression Normal global left ventricular systolic and diastolic function. Trace mitral regurgitation. Trace tricuspid regurgitation with a normal calculated pulmonary artery systolic pressure. The inferior vena cava was mildly enlarged. PROGNOSIS: Good ACTIVITY: As tolerated DIET: As tolerated DISPOSITION: 01 Home, Self-Care. DISCHARGE INSTRUCTIONS & ITEMS TO FOLLOWUP ON ON OUTPATIENT: -Follow-up with primary care physician (Dr. Jony Brown) in the next 7-10 days -Should presenting symptoms return and/or acutely worsen, please return to the ED or seek immediate medical care -Should any outstanding labs come back and are remarkable, patient will be notified with appropriate follow-up care arranged. DISCHARGE CONDITION: Stable TIME SPENT ON DISCHARGE: Time spent in discharge time was greater than 35 minutes. Vital Signs/I&Os Vital Signs Date Time Temp Pulse Resp B/P (MAP) Pulse Ox O2 Delivery O2 Flow Rate FiO2 03/04/20 06:00 98.6 96 16 107/75 (86) 99 Room Air Laboratory Data Labs 24H Laboratory Tests 2 03/05/20 13:52: Lab Scanned Report Miscellaneous Lab Microbiology Microbiology 03/02/20 Respiratory Virus Panel (PCR) (JOSE) - Final, Complete 03/01/20 Blood Culture - Preliminary, Resulted No Growth after 72 hours. All specime... 03/01/20 Blood Culture - Preliminary, Resulted No Growth after 72 hours. All specime... Discharge Medications Scheduled PRN Acetaminophen (Tylenol Extra Strength) 500 Mg Tablet, 1,000 MG PO TID PRN for PAIN, (Reported) Allergies Coded Allergies: No Known Allergies (Unverified , 03/20/18) SANDRO OLSEN D.O. March 05, 2020 17:49
== END 2020-03-04 12:04 | disposition home or self-care (01) | DRG 722 ==
LOC: M ED 12:18 → M ED INP 19:47 → ENRESERV 20:26 → M MSPAV 23:29
PROVIDERS: ADMIT Internal Medicine; ATTEND Internal Medicine
DX: R50.9 Fever, unspecified (principal); D50.9 Iron deficiency anemia, unspecified; G44.209 Tension-type headache, unspecified, not intractable; F17.220 Nicotine dependence, chewing tobacco, uncomplicated; M79.18 Myalgia, other site; R53.83 Other fatigue

== ENCOUNTER → 2022-01-10 | Outpatient (CLI) | payer OTHER ==
[~2022-01-10] MED LIST changes: +ACET-897 PO; +tylenol 2 tabs
== END ==
LOC: M WUC 14:48
PROVIDERS: ATTEND Physician Assistant
DX: S62.633A Displaced fracture of distal phalanx of left middle finger, initial encounter for closed fracture (principal); X58.XXXA Exposure to other specified factors, initial encounter; Y92.89 Other specified places as the place of occurrence of the external cause

== ENCOUNTER → 2024-08-12 | Outpatient (CLI) | payer BC ==
[~2024-08-12] MED LIST changes: +E-Z-PAQUE 96% w/w SUSP 176GM BTL As Ordered ONE
== END ==
LOC: M RAD 09:43
PROVIDERS: ATTEND Internal Medicine Gastroenterology
DX: R10.9 Unspecified abdominal pain (principal); K21.9 Gastro-esophageal reflux disease without esophagitis; R11.0 Nausea; R63.0 Anorexia; R19.4 Change in bowel habit; R53.83 Other fatigue